=== PATIENT | male | born 1955 | race Caucasian/White ===

== ENCOUNTER 2016-06-20 08:15 | Emergency (ER) | payer MEDICARE, MEDICAID ==
[~2016-06-20] VITALS: Ht 175.3 cm; Wt 84.1 kg
[2016-06-20 08:20] VITALS: BP 137/88; PULSE 71; RESP 16; O2SAT 97
--- NOTE | 2016-06-20 08:44 | ED.REPORT ---
HPI-General Illness Date of Service Jun 20, 2016 ED Provider: Dr. Baeza Pt is a 61 year old male with a history of asthma who presents to the ED with concerns for a flu-like illness onset 2 weeks ago. He reports chest tightening, cough, possible fever, diaphoresis, sore throat, headache and rhinorrhea. Pt reports that he is taking an albuterol inhaler for his asthma. Pt denies any shortness of breath, abdominal pain, nausea or vomiting. He has no other complaints. Nursing Notes Stated Complaint: POSSIBLE COLD Chief Complaint: FLU/Cold Symptoms Nursing Notes Reviewed: Yes Allergies: Coded Allergies: Penicillins (Verified Allergy, Intermediate, RASH, 06/20/16) Uncoded Allergies: Penicillin (Allergy, Unknown, 05/21/04) MED FOR ASTHMA (Adverse Reaction, Intermediate, MAKES MY ARTIFICIAL HIPS HURT MORE, 06/20/16) PAIN KILLER FOR SURGERY (Adverse Reaction, Intermediate, 06/20/16) Scheduled Prednisone (PredniSONE) 20 Mg Tablet 20 MG PO DAILY Sulfamethoxazole/Trimeth 800-160 mg (Bactrim DS) 1 Each Tablet 1 TABLET PO BID General Time Seen by MD: 08:44 Chief Complaint Multip medical complaints Hx Obtained From: Patient Arrived By: Walk-in Sudden in Onset?: Yes Onset Occurred: More than a week ago... (2 weeks) Symptom Duration: Since onset Location: : Head Quality: Painful Severity: Current: Mild Severity: Maximum: Mild Similar Sx Previous: Yes Past Medical History Past Medical History Reports: Asthma Past Surgical History Bilateral hip replacement Smoking History Former Smoker Social History Drug Use: Denies drug use Ambulatory Status Independent Review of Systems Full Review of Systems Constitutional: Reports: Fever, Weakness - generalized, Denies: Chills, Malaise Ears / Nose / Throat: Reports: Sore throat Respiratory: Reports: Non-productive cough, Denies: Shortness of breath, Wheezing Cardiovascular: Reports: Chest pain, Denies: Syncope GI: Denies: Abdominal pain, Constipation, Diarrhea, Nausea, Vomiting Male: Denies Dysuria, Denies Flank pain, Denies Urinary frequency, Denies Urinary urgency Musculoskeletal: Denies: Back pain, Neck pain Skin: Reports Diaphoresis Neurologic: Reports: Headache, Denies: Abnormal movement, Change LOC, Dizziness, Syncope, Weakness Complete sys rev & neg: except as marked. Physical Exam Vital Signs Vital Signs Date Time Temp Pulse Resp B/P Pulse Ox O2 Delivery O2 Flow Rate FiO2 06/20/16 08:20 36.7 71 16 137/88 97 Room Air Initial VS: Reviewed Head / Eyes: Atraumatic, Normocephalic, PERRL ENT: Mucous membranes moist, Conjunctiva normal, No scleral icterus Neck: Supple, Non-tender, Full range of motion Cardiovascular: Regular rate & rhythm, Heart sounds normal, Intact distal pulses Abdomen / GI: Soft, Non-tender, No guarding, No rebound, No distention Skin: Warm, Dry, No cyanosis Neurologic: Alert, Oriented, Nonfocal General/Constitutional: Awake, Alert, Well nourished, Cooperative Appearance / Presentation: Positive: Uncomfortable Maxillary facial tenderness Respiratory / Chest: Atraumatic, Breath sounds NL, Breath sounds = bilat, No respiratory distress Re-Eval/Medical Decision Source of Hx: Old records Time of Eval: 08:52 Re-Evaluation/Progress Note: Pt is rechecked and informed of his diagnosis and the plan to discharge him at this time. He understands and agrees, all questions are addressed. Counseled Regarding: Diagnosis, Lab results, When/why to return to ED Discharge & Departure Primary Impression: Sinusitis Sinusitis location: maxillary Chronicity: unspecified Qualified Code: J32.0 - Chronic maxillary sinusitis Disposition: Home Discharge Condition All VS Reviewed: Yes Condition: Stable Patient Instructions: Sinusitis (ED) Additional Instructions: No evidence of pneumonia today. I think it sinusitis and inflammation of your bronchitis/asthma. Continue taking your breathing medication (Combivent) and take prednisone 20 mg daily for 5 days. Use the antibiotic twice daily for 2 weeks. Follow-up in a week if you are not improving. Referrals: Vasyl Whitman (PCP) Scribe Attestation Portions of this note were transcribed by Maame Negrete. I, Dr. Baeza personally performed the history, physical exam and medical decision-making; I reviewed and confirmed the accuracy of the information in the transcribed note. Signed by: Maame Saenz, 06/20/2016 0852 copies to: Vasyl Whitman Kirk H MD Jun 20, 2016 08:44 SALIMA NEGRETE Jun 20, 2016 08:53
[2016-06-20] MEDS ORDERED: PRE20 PO (08:55)
[2016-06-20] MEDS ORDERED: SULF1TAB7 PO (08:55)
== END 2016-06-20 09:11 | disposition home or self-care (01) ==
LOC: SED 08:15
DX: J32.0 Chronic maxillary sinusitis (principal); J45.909 Unspecified asthma, uncomplicated; Z87.891 Personal history of nicotine dependence; Z88.0 Allergy status to penicillin

== ENCOUNTER 2017-01-29 19:49 | Emergency (ER) | payer MEDICARE, MEDICAID ==
[~2017-01-29] VITALS: Ht 175.3 cm; Wt 88.6 kg
[~2017-01-29 19:49] MED LIST: PRE20 PO; SULF1TAB7 PO
[2017-01-29 20:11] VITALS: BP 150/88; PULSE 84; RESP 16; O2SAT 96
[2017-01-29 21:09] LABS: BASOPHILS % (AUTO) 0.6 % (0-3); EOSINOPHILS % (AUTO) 3.7 % (0-5); MONOCYTES % (AUTO) 12.3 % (4-12); Mean Corpuscular Hemoglobin 30.3 pg (27.0-35.0); Mean Corpuscular Volume 89.5 fL (81-100); NEUTROPHILS % (AUTO) 64.2 % (40-74); Platelet Count 232 bil/L (150-400)
[2017-01-29 21:36] LABS: Magnesium 1.8 mg/dL (1.6-2.6)
--- NOTE | 2017-01-29 22:20 | ED.REPORT ---
HPI-Abd Pain M 40 and Over Date of Service Jan 29, 2017 ED Provider: Agustín Anglin MD Pt is a 61 year old male with a history of COPD, HTN, and GERD who presents to the ED complaining of nausea onset 1 week. He c/o associated right-sided abdominal pain when vomiting, migraines, and vomiting. He denies fever, back pain, dysuria, hematochezia, hematemesis, and any other symptoms. Pt reports that he presented to his PCP and he was referred to the ED to be "possibly admitted for pancreatitis." Nursing Notes Stated Complaint: PANCREATITIS Chief Complaint: Male Abdominal Pain Nursing Notes Reviewed: Yes Allergies: Coded Allergies: Penicillins (Verified Allergy, Intermediate, RASH, 06/20/16) morphine (Verified Allergy, Unknown, 01/29/17) sumatriptan (Verified Allergy, Unknown, 01/29/17) Scheduled Prednisone (PredniSONE) 20 Mg Tablet 20 MG PO DAILY Sulfamethoxazole/Trimeth 800-160 mg (Bactrim DS) 1 Each Tablet 1 TABLET PO BID General Time Seen by MD: 22:19 Chief Complaint Nausea Hx Obtained From: Patient, Safety And Security Manager Arrived By: Walk-in Sudden in Onset?: No Onset Occurred: 1 week ago Symptom Duration: Since onset Location: : Diffuse Quality: Painful Radiation: : Does not radiate Severity: Current: Moderate Severity: Maximum: Moderate Recent Healthcare: Recent doctor visit Similar Sx Previous: No Past Medical History Past Medical History Arthritis Sleep apnea Anxiety Reports: Asthma, COPD, GERD, Hypertension Past Surgical History Bilateral hip replacement left hip x2 right hip x1 right knee x1 Smoking History Former Smoker Social History Alcohol Use: Denies alcohol use Drug Use: Denies drug use Other Social History: Good social support Ambulatory Status Independent Review of Systems Constitutional: Denies: Fever Respiratory: Denies: Non-productive cough GI: Reports: Abdominal pain, Nausea, Vomiting Complete sys rev & neg: except as marked. Physical Exam Initial Vital Signs Vital Signs (First) Date Time Temp Pulse Resp B/P Pulse Ox O2 Delivery O2 Flow Rate FiO2 01/29/17 20:11 36.8 84 16 150/88 96 Room Air Initial VS: Reviewed Head / Eyes: Atraumatic, Normocephalic Neck: Supple, Full range of motion Extremities: Vascular intact, Neuro intact Skin: Warm, Dry, No cyanosis Neurologic: Alert, Oriented, Nonfocal Psychiatric: Mood/affect normal, Behavior normal General/Constitutional: Awake, Alert Respiratory / Chest: Atraumatic, Breath sounds NL, Breath sounds = bilat Cardiovascular: Heart rate NL, Regular rhythm, Heart sounds NL Abdomen: Atraumatic, Soft, Non-tender Back: Atraumatic, Full range of motion, No CVA tenderness Interpretation & Diagnostics Lab Results Interpretation Result Diagram: 01/29/17 2100 01/29/17 2100 Test 01/29/17 21:00 01/29/17 23:15 White Blood Count 10.4th/mm3 (3.8-10.1) Red Blood Count 4.55mil/mm3 (4.40-5.80) Hemoglobin 13.8g/dL (13.8-17.2) Hematocrit 40.7% (41.0-50.0) Mean Corpuscular Volume 89.5fL (81-100) Mean Corpuscular Hemoglobin 30.3pg (27.0-35.0) Mean Corpuscular Hemoglobin Concent 33.9% (32.0-37.0) Red Cell Distribution Width 14.0% (12.3-15.4) Platelet Count 232bil/L (150-400) Neutrophils (%) (Auto) 64.2% (40-74) Lymphocytes (%) (Auto) 18.8% (14-46) Monocytes (%) (Auto) 12.3% (4-12) Eosinophils (%) (Auto) 3.7% (0-5) Basophils (%) (Auto) 0.6% (0-3) Sodium Level 131mEq/L (134-144) Potassium Level 5.8mEq/L (3.5-5.2) Chloride Level 99mEq/L (97-108) Carbon Dioxide Level 20mmol/L (18-29) Blood Urea Nitrogen 28mg/dL (8-27) Creatinine 1.14mg/dL (0.76-1.27) Estimat Glomerular Filtration Rate 69mL/min (>59) Glucose Level 277mg/dL (60-99) Calcium Level 10.2mg/dL (8.5-10.1) Magnesium Level 1.8mg/dL (1.6-2.6) Total Bilirubin 0.2mg/dL (0.0-1.2) Aspartate Amino Transf (AST/SGOT) 21U/L (0-50) Alanine Aminotransferase (ALT/SGPT) 25U/L (0-44) Alkaline Phosphatase 122U/L (25-160) Total Protein 7.8g/dL (6.4-8.4) Albumin 4.5g/dL (3.4-5.0) Lipase 52U/L (13-60) Hold Garcia Top Tube Received (Received) Hold Urine Received (Received) ECG Interpretation ECG Interpretation: Sinus rhythm with a rate of 67 Time: 23:14 Interpreted by: ED physician Re-Eval/Medical Decision Med Decision/Clinical Course 61-year-old male presenting with nausea vomiting and headaches for one week. He has chronic migraines for which she has nausea and vomiting with. This is been his typical symptoms. He did see his primary doctor yesterday who performed some labs and sent him in for possible pancreatitis. He does report some abdominal pain yesterday which has resolved. His lipase is normal here. His labs are unremarkable other than a mildly elevated potassium. He does report eating many bananas per day. He has no EKG changes. He is asymptomatic. He had no nausea vomiting here or abdominal pain. Tolerating by mouth. He was given 1 dose of Kayexalate for his hyperkalemia and advised to use a low potassium diet over the weekend with follow-up with his primary doctor Wednesday for lab recheck. Recommend immediate return if any chest pain difficulty breathing any other new or worsening symptoms. Source of Hx: Old records Time of Eval: 23:10 Re-Evaluation/Progress Note: Informed of plan for evaluation. All questions addressed. Time of Eval: 23:40 Re-Evaluation/Progress Note: Pt rechecked. Informed pt of plan for discharge. Pt understands and agrees with plan for discharge. F/U instructions and RTER warnings given. All questions addressed. Counseled Regarding: Diagnosis, Lab results, Need for follow-up, When/why to return to ED Discharge & Departure Primary Impression: Vomiting Vomiting type: unspecified Vomiting Intractability: unspecified Nausea presence: with nausea Qualified Code: R11.2 - Nausea with vomiting, unspecified Additional Impression: Hyperkalemia Disposition: Home Vital Signs - All Vital Signs Date Time Temp Pulse Resp B/P Pulse Ox O2 Delivery O2 Flow Rate FiO2 01/30/17 01:00 65 16 158/88 98 Room Air 01/29/17 20:11 36.8 84 16 150/88 96 Room Air )( All Prior VS Reviewed: Yes Condition: Stable Patient Instructions: Acute Nausea and Vomiting (ED), Hyperkalemia (ED) Additional Instructions: You have a high potassium level (hyperkalemia). Avoid foods containing potassium until your follow-up appointment on Wednesday. Call your primary care provider tomorrow for a follow-up appointment on Wednesday. Return to the Emergency Department if you experience vomiting, fever, chest pain , difficulty breathing, blood in stools, blood in vomiting, or any other concerning symptoms. Referrals: Grabiel Ferris DO (PCP) Scribe Attestation Portions of this note were transcribed by Meghna Bains. I, Dr. Anglin personally performed the history, physical exam and medical decision-making; I reviewed and confirmed the accuracy of the information in the transcribed note. Signed by: Letty Dudley, 01/29/17. copies to: Grabiel Ferris Ben M MD Jan 29, 2017 22:19 Meghna Quiles Jan 29, 2017 22:47
[2017-01-30 01:00] VITALS: BP 158/88; PULSE 65; RESP 16; O2SAT 98
== END 2017-01-30 01:01 | disposition home or self-care (01) ==
LOC: SED 19:49
DX: R11.2 Nausea with vomiting, unspecified (principal); R51 Headache; E87.5 Hyperkalemia; J44.9 Chronic obstructive pulmonary disease, unspecified; K21.9 Gastro-esophageal reflux disease without esophagitis; I10 Essential (primary) hypertension; Z96.643 Presence of artificial hip joint, bilateral; Z87.891 Personal history of nicotine dependence; Z96.651 Presence of right artificial knee joint; Z79.52 Long term (current) use of systemic steroids; Z88.0 Allergy status to penicillin; Z88.5 Allergy status to narcotic agent; Z88.8 Allergy status to other drugs, medicaments and biological substances